=== PATIENT | female | born 2000 | race Caucasian/White ===

== ENCOUNTER → 2021-02-20 15:07 | Outpatient (BNVA) | payer BC, SELFPAY | PROVIDERS: Visit Provider Nurse Practitioner Family | DX: K92.1 Melena (principal) | CPT/HCPCS: 80053; 85025 ==

== ENCOUNTER 2024-10-14 12:08 | Outpatient (CLI) | payer MEDICAID, SELFPAY ==
[2024-10-14 12:08] VITALS: RESP 17; BMI 28.3
[2024-10-14 12:21] VITALS: BP 144/93; PULSE 107
[2024-10-14 12:42] VITALS: BP 131/81; PULSE 86
[2024-10-14 12:53] LABS: Nitrazine Paper, PH Negative
[2024-10-14 12:57] VITALS: BP 135/82; PULSE 89
[2024-10-14 13:10] VITALS: BP 135/82; PULSE 89; RESP 16
== END 2024-10-14 13:10 | disposition home or self-care (01) ==
LOC: OPOB 12:09 → OBGYN 13:07
PROVIDERS: PCP Family Medicine; Visit Provider Family Medicine
DX: O26.899 Other specified pregnancy related conditions, unspecified trimester (principal); Z3A.00 Weeks of gestation of pregnancy not specified; N89.8 Other specified noninflammatory disorders of vagina
CPT/HCPCS: 59025; 83986; 99211

== ENCOUNTER 2024-10-17 11:33 | Outpatient (CLI) | payer MEDICAID, SELFPAY ==
[2024-10-17 11:38] VITALS: RESP 16; BMI 28.6
[2024-10-17 11:45] VITALS: BP 135/88; PULSE 96
[2024-10-17 12:02] VITALS: BP 126/79; PULSE 100
== END 2024-10-17 12:05 | disposition home or self-care (01) ==
LOC: OPOB 11:33 → OBGYN 11:34
PROVIDERS: PCP Family Medicine; Visit Provider Family Medicine
DX: O26.899 Other specified pregnancy related conditions, unspecified trimester (principal); Z3A.00 Weeks of gestation of pregnancy not specified; N89.8 Other specified noninflammatory disorders of vagina
CPT/HCPCS: 59025; 83986; 99211

== ENCOUNTER 2024-10-20 03:44 | Inpatient (IN) | payer MEDICAID, SELFPAY ==
[2024-10-19 23:13] VITALS: BP 123/84; PULSE 118
[2024-10-19 23:27] VITALS: BP 124/77; PULSE 114
[2024-10-19 23:42] VITALS: BP 113/81; PULSE 102
[2024-10-19 23:57] LABS: Actim Prom Positive
[2024-10-19 23:58] VITALS: BP 129/80; PULSE 103
[2024-10-20] VITALS (83 sets, daily range): BP systolic 105–146; BP diastolic 53–102; PULSE 89–150; RESP 15–16; TEMP 36.7–38.2; O2SAT 82–100; BMI 28.5
[2024-10-20 01:15] LABS: Basophils # 0.1 10^3/uL (0.0-0.1); Basophils % 0.3 %; Eosinophils # 0.1 10^3/uL (0.0-0.8); Eosinophils % 0.3 %; Hematocrit 32.1 % (36-47); Lymphocytes # 1.4 10^3/uL (0.8-4.8); Mean Corpuscular HGB Conc 31.8 g/dL (30-55); Mean Corpuscular Hemoglobin 28.1 pg (27-33); Mean Corpuscular Volume 88.4 fl (85-98); Mean Platelet Volume 10.6 fL (7.4-10.4); Monocytes % 4.9 %; Neutrophils # 17.36 10^3/uL (1.8-7.7); Neutrophils % 86.8 %; Nucleated Red Blood Cells % 0 %; Platelet Count 310 10^3/cmm (157-399); Red Blood Count 3.63 10^6/uL (3.85-5.65); Red Cell Distribution Width 13.2 % (12.1-15.1); White Blood Count 20.01 10^3/uL (3.29-11.43)
[2024-10-20] MEDS: lactated ringers 1,000 ML 999 ML IV (01:30)
[2024-10-20] MEDS: dextrose 5%-lactated ringers 1,000 ML 125 ML IV (02:01)
[2024-10-20] MEDS: ampicillin 2,000 MG in sodium chloride 0.9% (plus) 50 ML 100 MG IV (02:02)
--- NOTE | 2024-10-20 02:30 | PM.OPHPUD ---
Labor & Delivery H&P Update Date of Procedure: October 20, 2024 Date H&P Performed: 10/19/24 Changes to previous documentation: 1. Spontaneous rupture of membranes 2. Cervical change Admission Diagnosis: 24-year-old 1 at 39 weeks estimated gestational age who is GBS positive who is in active labor with spontaneous rupture membranes. Planned procedure: Vaginal delivery Other information: The patient is an otherwise healthy female who presented to the hospital complaining of spontaneous rupture of membranes and consistent contractions. Upon arrival to the hospital spontaneous rupture of membranes was confirmed. She was also noted to have consistent contractions happening every 2 to 3 minutes. Her pregnancies been unremarkable. She received consistent care. Her blood type is O+. Antibody screen is negative. She passed 2 glucose screen. She is GBS positive she is rubella nonimmune.
[2024-10-20] MEDS: ROPivacaine syringe 100 MG/50 ML SYRINGE 10 MG EPIDURAL ×2 (02:31→05:47)
--- NOTE | 2024-10-20 02:34 | P.ANESUD_ITS ---
Pre-Anesthetic Update Pre-Anesthetic Assessment: Date of Surgery/Procedure: 10/20/24 Preop Freda gnosis: IUP Proposed Procedure: labor epidural Any changes to Pre-Anesthetic Assessment?: No Labs Last 48hrs: Short CBC 10/20/24 Range/Units 01:00 WBC 20.01 H (3.29-11.43) 10^ 3/uL Hgb 10.20 L (11.27-16.99) g/ dL Hct 32.1 L (36-47) % MCV 88.4 (85-98) fl Plt Count 310 (157-399) 10^3/c mm Neut % (Auto) 86.8 % Neut # (Auto) 17.36 H (1.8-7.7) 10^3/u L Blood Bank 10/20/24 01:00 Blood Type O Positive Rho(D) Type Rh positive Antibody Screen Negative Vitals: Temperature 99.2 F 10/20/24 02:34 Temperature Source Oral 10/20/24 02:34 Pulse Rate 138 H 10/20/24 02:31 Blood Pressure 122/86 10/20/24 02:27 Pulse Oximetry 100 10/20/24 02:31 Exam: Pre-Anes Outpt Exam: alert, oriented x 3 and clear to auscultation bilaterally Cardiac Studies: No Data to Display Anesthesia Procedures Epidural: Time Out Performed: Yes Consents Signed: Procedure Consent Consent: requested by attending/covering physician, from patient, risks and benefits reviewed and patient agrees to proceed Lumbar Level: L3-L4 Epidural position: sitting Epidural procedure: sterile prep of area, 1% lidocaine to numb the area, 18 g needle, negative for paresthesia passed, neg for paresthesia, test dose given, 1.5% xylocaine 1:200k epi, 0.2% Ropivacaine bolus ml (5), placed PCEA, no systemic response, sterile dressing applied, L.U.D. no apparent complications and 0.2% Ropiavacaine @ mls/hr (10) Additional Comments: DANIEL 5cm, catheter easily threaded to 11cm. VS monitored throughout and remained stable. pt educated on [employer] and reporting adequate analgesia with epidural.
[2024-10-20] MEDS: sodium chloride 0.9% 1,000 ML 999 ML IV (02:59)
[2024-10-20] MEDS: acetaminophen 325 mg Tablet 650 MG PO (05:21)
[2024-10-20] MEDS: ampicillin 1,000 MG in sodium chloride 0.9% (plus) 50 ML 100 MG IV (06:07)
[2024-10-20] MEDS: oxytocin 30 UNIT/500 ML BAG 600 UNIT IV (07:01)
[2024-10-20] MEDS: lidocaine 2% INJ 20 mL INJECTION (07:05)
--- NOTE | 2024-10-20 07:35 | P.PCNOB_ITS ---
Delivery Note: Date of delivery: October 20, 2024 Pre-delivery diagnoses: 24-year-old 1 at 39 weeks estima antonio gestational age presenting with spontaneous rupture membranes and active labor Post-delivery diagnoses: Status post vacuum-assisted vaginal delivery Procedure: Vacuum-assisted vaginal delivery Delivering Physician: Fred Aponte Estimated blood loss (mL): 150 Pre-Delivery Course: The patient presented to the hospital in active labor. She had spontaneous rupture membranes. She was GBS positive. She received 2 doses of antibiotics. An epidural was placed. She pushed for over 2 hours. While she was making some progress, she was becoming fatigued, and the strength of her pressures were reduced. The baby had persistent tachycardia as well as periods of reduced variability. I discussed the situation with the parents. We discussed the option of using a vacuum to assist with delivery. We discussed the risks. After weighing the pros and cons, we decided to proceed with a vacuum assisted delivery.. Delivery: DELIVERY: The patient progressed to complete without difficulty. A vacuum was carefully placed in the appropriate position of the baby's head. The vacuum was activated to the green portion of the scale. The vacuum was used for 2 separate contractions and was released in between contractions. On the second push of the second contraction she delivered a female with a weight of 7 pounds 12 ounces with Apgars of 8, 9. The baby was delivered from the MAR[place] position. The baby's mouth and nose were suctioned at the site of the perineum. The baby was then completely delivered and placed on the mother's abdomen. The cord was then clamped and cut. There was no nuchal cord. There was no meconium. The place nta and 3 vessel cord were delivered intact shortly thereafter. The perineum and vaginal vault were carefully examined. A second-degree laceration was noted, including tears on both the left and right perineal area. It was repaired with 3-0 Vicryl. Both the mother and the baby were in stable condition. Post-Delivery Status: Good A&P Assessment and plan (1) 39 weeks gestation of : I anticipate routine care. (2) Vacuum-assisted vaginal delivery: (3) Group beta Strep positive: PDMP PDMP Reviewed: Not Reviewed Coding Level of Care Code Acute Code for Chg Fwd Diagnoses 39 weeks gestation of Z3A.39 Vacuum-assisted vaginal delivery Z37.9 Group beta Strep positive B95.1
[2024-10-20] MEDS: ibuprofen 800 mg tablet PO ×3 (08:37→22:37)
[2024-10-20] MEDS: PRENATAL VIT NO.130/IRON/FOLIC 1 EACH TABLET PO (08:37)
[2024-10-20] MEDS: docusate sodium 100 mg Capsule PO ×2 (08:37→18:44)
[2024-10-20] MEDS: lanolin oint 7 gm 1 APPLIC TOPICAL (08:37)
[2024-10-20] MEDS: benzocaine-menthol 78 gm Canister 1 SPRAY TOPICAL (08:38)
[2024-10-20 21:07] LABS: Hematocrit 27.5 % (36-47); Mean Corpuscular Hemoglobin 28.2 pg (27-33); Mean Corpuscular Volume 88.1 fl (85-98); Mean Platelet Volume 10.7 fL (7.4-10.4); Platelet Count 288 10^3/cmm (157-399); Red Blood Count 3.12 10^6/uL (3.85-5.65); Red Cell Distribution Width 13.6 % (12.1-15.1)
[2024-10-20 21:14] LABS: White Blood Count 34.87 10^3/uL (3.29-11.43)
[2024-10-21 04:00] VITALS: BP 128/74; PULSE 89; RESP 16
--- NOTE | 2024-10-21 08:14 | PM.OBGYDC ---
Discharge Providers [employer]NAGER Date of Admission: 10/20/24 03:44 Date of Discharge: 10/31/24 Attending Provider at Admission: Fred Aponte MD Attending Provider at Discharge: Fred Aponte MD Primary Care Provider: Fred Aponte MD Diagnoses at Discharge Discharge Diagnosis (1) 39 weeks gestation of : Status: Acute (2) Vacuum-assisted vaginal delivery: Status: Acute (3) Group beta Strep positive: Status: Acute Reason for Visit Reason for Visit: contractions Hospital Course Hospital Course The patient had an unremarkable hospital stay. Her course and labor were unremarkable. Her course demonstrated bleeding and pain within normal limits. There were no concerns. Information Peripartum Data: Delivery Method: Vaginal Physical Exam Narrative: The patient is alert. She appears comfortable. Her heart has a regular rate and rhythm with no murmurs appreciated. Lungs are clear to auscultation bilaterally. Her fundus is firm and below the umbilicus. Urinary Catheter Management: Ba Latex: Cath Placed During This Visit: yes, but has since been removed by the nurse Reason for Continuing Indwelling Catheter: Decision to DC Catheter Urinary Catheter Date of Insertion: 10/20/24 Urinary Catheter Time of Insertion: 03:30 Date Urinary Catheter Removed: 10/20/24 Time Urinary Catheter Discontinued: 04:35 Discharge Data Studies Completed and Pending Laboratory Results WBC 34.87 10^3/uL (3.29-11.43) H* 10/20/24 19:05 RBC 3.12 10^6/uL (3.85-5.65) L 10/20/24 19:05 Hgb 8.80 g/dL (11.27-16.99) L 10/20/24 19:05 Hct 27.5 % (36-47) L 10/20/24 19:05 MCV 88.1 fl (85-98) 10/20/24 19:05 MCH 28.2 pg (27-33) 10/20/24 19:05 MCHC 32.0 g/dL (30-55) 10/20/24 19:05 RDW 13.6 % (12.1-15.1) 10/20/24 19:05 Plt Count 288 10^3/cmm (157-399) 10/20/24 19:05 MPV 10.7 fL (7.4-10.4) H 10/20/24 19:05 Neut % (Auto) 86.8 % 10/20/24 01:00 Lymph % (Auto) 7.0 % 10/20/24 01:00 Anderson % (Auto) 4.9 % 10/20/24 01:00 Eos % (Auto) 0.3 % 10/20/24 01:00 Baso % (Auto) 0.3 % 10/20/24 01:00 Neut # (Auto) 17.36 10^3/uL (1.8-7.7) H 10/20/24 01:00 Lymph # (Auto) 1.4 10^3/uL (0.8-4.8) 10/20/24 01:00 Anderson # (Auto) 1.0 10^3/uL (0.2-0.9) H 10/20/24 01:00 Eos # (Auto) 0.1 10^3/uL (0.0-0.8) 10/20/24 01:00 Baso # (Auto) 0.1 10^3/uL (0.0-0.1) 10/20/24 01:00 Nucleated RBC % (auto) 0 % 10/20/24 01:00 Nucleated RBCs # 0.0 /100WBC 10/20/24 01:00 Insulin-like GF I Positive 10/19/24 23:40 Blood Type O Positive 10/20/24 01:00 Rho(D) Type Rh positive 10/20/24 01:00 Antibody Screen Negative 10/20/24 01:00 Vitals Last Vital Signs Temp 98.1 F 10/20/24 15:03 Pulse 89 10/21/24 04:00 Resp 16 10/21/24 04:00 BP 128/74 10/21/24 04:00 Pulse Ox 100 10/20/24 04:31 O2 Del Method Room Air 10/21/24 04:00 Results Labs OB ([facility]): Blood Type O Positive 10/20/24 Antibody Screen Negative 10/20/24 Hct 27.5 % (36-47) L 10/20/24 Hgb 8.80 g/dL (11.27-16.99) L 10/20/24 Rho(D) Type Rh positive 10/20/24 Plt Count 288 10^3/cmm (157-399) 10/20/24 Discharge Plan Discharge Patient Disposition: Home Condition: Stable Prescriptions: New ibuprofen 800 mg Tablet 800 mg PO TID Qty: 45 0RF Continued + Iron capsule 1 tab PO DAILY Discharge Orders: Discharge Order (Routine); Ordered 10/21/24 Ordered By: Fred Aponte Referrals: Fred Aponte MD [Primary Care Provider] - 12/03/24 2:30 pm Discharge Diet: Usual diet Discharge Activity: Limit activity as instructed Patient Instructions: Depression (DC), Bleeding (DC), Preeclampsia and Eclampsia After Delivery (GEN), Hemorrhage (DC), OB Discharge Report, OB Food/Drug Interaction Guide, OB Care at Home, Opioid Safety, OB Home Care, OB Vaginal Deliveries Discharge Attestations [employer]GER Time Spent in Discharge Care*: less than 30 min Coding Level of Care Code Acute Code for Chg Fwd Diagnoses 39 weeks gestation of Z3A.39 Vacuum-assisted vaginal delivery Z37.9 Group beta Strep positive B95.1
[2024-10-21] MEDS: PRENATAL VIT NO.130/IRON/FOLIC 1 EACH TABLET PO (10:39)
[2024-10-21] MEDS: ibuprofen 800 mg tablet PO (10:39)
[2024-10-21] MEDS: docusate sodium 100 mg Capsule PO (10:40)
[2024-10-21] MEDS: measles,mumps,rubella pf Vial (w/diluent) 0.5 ML SUBCUT (10:40)
[2024-10-21 11:00] VITALS: BP 110/75; PULSE 104; RESP 16; TEMP 36.6; O2SAT 98
--- NOTE | 2024-10-21 13:47 | ANE.PACU2 ---
Inpatient post-anesthesia follow up: Airway intact: Yes Vital signs: Temperature 97.9 F Pulse Rate 104 Respiratory Rate 16 Blood Pressure 110/75 Pulse Oximetry 98 Oxygen Delivery Me thod Room Air Oxygen Flow Rate Fraction of Inspir ed Oxygen Hydration adequate: Yes Nausea and vomiting: No Pain level: 2 Mental status: Baseline Epidural Start/End: Epidural Start Date: 10/20/24 Epidural Start Time: 02:15 Epidural End Date: 10/20/24 Epidural End Time: 09:30
== END 2024-10-21 11:00 | disposition home or self-care (01) | DRG 807 ==
LOC: OPOB 03:45 → OBGYN 03:45
PROVIDERS: Admitting Provider Family Medicine; PCP Family Medicine; Visit Provider Family Medicine
DX: O70.1 Second degree perineal laceration during delivery (principal); Z37.0 Single live birth; O99.824 Streptococcus B carrier state complicating childbirth; Z3A.39 39 weeks gestation of pregnancy
CPT/HCPCS: 36415; 51702; 59025; 59409; 83986; 84112; 85025; 85027; 86850; 86900; 90707; 96372; 99211; J0290; J2590; J2795; J7030; J7120; J7121; J9999